=== PATIENT | male | born 1970 | race Caucasian/White ===

== ENCOUNTER → 2017-01-21 | Outpatient (CLI) | payer OTHER ==
[2017-01-21 11:10] LABS: SYNOVIAL FLUID APPEARANCE HAZY; SYNOVIAL FLUID COLOR STRAW; SYNOVIAL FLUID MONONUC RELAT 90.9 %; SYNOVIAL FLUID POLYNUC RELAT 9.1 %
[2017-01-26 19:16] LABS: 18KDIGG BAND NONREACTIVE (NONREACTIVE); 23KDIGG BAND NONREACTIVE (NONREACTIVE); 23KDIGM BAND NONREACTIVE (NONREACTIVE); 28KDIGG BAND NONREACTIVE (NONREACTIVE); 30KDIGG BAND REACTIVE (NONREACTIVE); 39KDIGG BAND NONREACTIVE (NONREACTIVE); 39KDIGM BAND NONREACTIVE (NONREACTIVE); 41KDIGG BAND REACTIVE (NONREACTIVE); 41KDIGM BAND NONREACTIVE (NONREACTIVE); 45KDIGG BAND NONREACTIVE (NONREACTIVE); 58KDIGG BAND NONREACTIVE (NONREACTIVE); 66KDIGG BAND NONREACTIVE (NONREACTIVE); 93KDIGG BAND NONREACTIVE (NONREACTIVE)
== END | disposition home or self-care (01) ==
LOC: C.LAB 10:08
PROVIDERS: ATTEND Orthopaedic Surgery
DX: M25.462 Effusion, left knee (principal)

== ENCOUNTER → 2017-06-03 | Outpatient (CLI) | payer OTHER ==
[2017-06-03 12:15] LABS: BASO % 1.5 %; BASO ABS # 0.11 K/uL (0-0.2); COMPLETE YES; EOS % 5.3 %; HEMATOCRIT 44.6 % (42-52); IG% 0.1 %; LYMPH % 27.5 %; LYMPH ABS # 2.06 K/uL (1.2-3.4); MEAN CELL VOLUME 93.9 fL (80-100); MEAN CORPUSCULAR HEMOGLOBIN 32.6 pg (25-34); MEAN CORPUSCULAR HGB CONC 34.8 g/dl (32-36); MEAN PLATELET VOLUME 10.3 fL (7.4-10.4); MONO % 7.9 %; NEUT % 57.7 %; PLATELET COUNT 400 K/uL (130-400); RED BLOOD COUNT 4.75 M/uL (4.7-6.1); WHITE BLOOD COUNT 7.49 K/uL (4.8-10.8)
[2017-06-03 12:39] LABS: ALT/SGPT 27 U/L (12-78); AMYLASE 44 U/L (25-115); AST/SGOT 17 U/L (15-37); BLOOD UREA NITROGEN 16 mg/dl (7-18); BUN/CREATININE RATIO 16.7 (10-20); CARBON DIOXIDE 30 mmol/L (21-32); CHLORIDE 103 mmol/L (98-107); CHOLESTEROL 175 mg/dl (0-200); CREATININE 0.95 mg/dl (0.60-1.40); GLUCOSE 112 mg/dl (70-99); POTASSIUM 4.3 mmol/L (3.5-5.1); SODIUM 140 mmol/L (136-145)
[2017-06-03 12:45] LABS: ALB/GLOB RATIO 1.1 (0.9-2); ALKALINE PHOSPHATASE 79 U/L (45-117); CHOLESTEROL/HDL RATIO 4.5; HDL CHOLESTEROL 39 mg/dl; LDL CHOLESTEROL CALCULATED 108 mg/dl; TRIGLYCERIDES 140 mg/dl (0-150); VERY LOW DENSITY LIPOPROT CALC 28 mg/dl
== END | disposition home or self-care (01) ==
LOC: C.LABBFT 09:20
PROVIDERS: ATTEND Physician Assistant Medical
DX: R10.11 Right upper quadrant pain (principal); Z13.6 Encounter for screening for cardiovascular disorders

== ENCOUNTER → 2017-06-07 | Outpatient (CLI) | payer OTHER ==
--- NOTE | 2017-06-07 09:22 | DIAGNOSTIC IMAGING REPORT ---
BILIARY ULTRASOUND CLINICAL HISTORY: Right upper quadrant abdominal pain COMPARISON STUDY: No previous studies for comparison. FINDINGS: The gallbladder appears sonographically normal. There is no ductal dilatation. There is a 13 mm hypoechoic nodule within the mid pancreatic body. There are multiple hepatic cysts, the largest of which measures 22 mm in diameter. There is no right-sided hydronephrosis IMPRESSION: 1. 13 mm hypoechoic mass within the mid pancreatic body. An MRI is recommended in follow-up. 2. Multiple hepatic cysts 3. Ultrasonographically normal gallbladder. No ductal dilatation. Electronically signed by: Neftali Ashton M.D. 06/07/2017 9:21 AM Dictated Date/Time: 06/07/2017 9:19 AM
== END | disposition home or self-care (01) ==
LOC: C.ULTRBC 08:24
PROVIDERS: ATTEND Physician Assistant Medical
DX: R10.11 Right upper quadrant pain (principal)

== ENCOUNTER → 2017-06-08 | Outpatient (CLI) | payer OTHER ==
[~2017-06-08] MED LIST: GADAVIST IV PRN
--- NOTE | 2017-06-08 18:31 | DIAGNOSTIC IMAGING REPORT ---
ORBIT RADIOGRAPHS 3 VIEWS HISTORY: pre-MRI screening. COMPARISON: None. FINDINGS: There are no radiopaque foreign bodies identified within the orbits. IMPRESSION: No radiopaque foreign bodies identified within the orbits. Electronically signed by: Hugo Garcia M.D. 06/08/2017 6:29 PM Dictated Date/Time: 06/08/2017 6:29 PM
--- NOTE | 2017-06-08 20:20 | DIAGNOSTIC IMAGING REPORT ---
MRI OF THE ABDOMEN COMBO CLINICAL HISTORY: Abnormal ultrasound. Assess for pancreatic mass. COMPARISON STUDY: Abdominal ultrasound dated 06/07/2017. TECHNIQUE: MRI of the abdomen is performed transverse T1 and T2-weighted sequences in the axial and coronal planes. Contrast enhanced sequences were acquired following the IV administration of 11 cc of Gadavist. MRCP images were acquired. Subtraction imaging was utilized. FINDINGS: Lower chest: No pleural effusion is identified. The heart is normal in size. Liver: The liver is normal in size, contour, and signal intensity. No intrahepatic biliary ductal dilatation is seen. The hepatic veins and portal veins are patent. There are numerous (greater than 20) hepatic cysts which measure up to 1.8 cm. Gallbladder: The gallbladder is normal in appearance. No gallstones are identified. The common bile duct is normal in caliber, measuring up to 3.5 mm. There is no evidence of choledocholithiasis. Spleen: Normal in size and signal intensity. Pancreas: There is a subtle nearly isointense nodule suggested within the pancreatic neck, best seen on axial image #46. This demonstrates arterial hypervascularity, and likely corresponds to the lesion suggested by ultrasound. The pancreatic duct is normal in caliber. Adrenal glands: Unremarkable. Kidneys: The kidneys are normal in size and without hydronephrosis. The kidneys enhance and excrete symmetrically. Abdominal aorta: Normal in course and caliber. Bowel: Visualized portions of the small bowel and colon show no evidence of obstruction. Peritoneum: There is no abdominal ascites. Lymphadenopathy: None. Skeletal structures: Visualized skeletal structures times are normal marrow signal intensity. IMPRESSION: 1. There is a subtle hypervascular nodule suggested in the region of the pancreatic neck measuring up to 1.4 cm. This likely corresponds to the lesion seen by ultrasound, and the appearance is not typical for adenocarcinoma. The early phase enhancement suggests this may represent a neuroendocrine tumor. Follow-up with endoscopic ultrasound and biopsy is recommended for further assessment. 2. No additional pancreatic lesion is identified. The pancreatic duct is normal in caliber. 3. There are numerous hepatic cysts identified. 4. Unremarkable MRCP. Electronically signed by: Nicholas Franks M.D. 06/08/2017 8:18 PM Dictated Date/Time: 06/08/2017 8:04 PM
== END | disposition home or self-care (01) ==
LOC: C.MRI 18:05
PROVIDERS: ATTEND Physician Assistant Medical
DX: K86.9 Disease of pancreas, unspecified (principal); Z13.5 Encounter for screening for eye and ear disorders